=== PATIENT | male | born 1980 ===

== ENCOUNTER → 2017-03-08 06:07 | Emergency (ER) | payer OTHER ==
[~2017-03-08 06:07] MED LIST: hydrOXYzine HCL TAB* 50 MG PO ONE; predniSONE TAB* 20 MG PO ONE
[2017-03-08 06:14] VITALS: BP 150/86
--- NOTE | 2017-03-08 06:34 | ED ---
Joby Dhaliwal Alok, scribed for James Tran MD on 03/08/17 at 0631 . Skin Complaint - HPI Summary HPI Summary: 36M presents to the ED with a diffuse rash with pruritus on his legs, arms, abd , and back. Pt states that he was exposed to [place] as well as possibly poison bhavin one week ago and that a rash beginning on his right bicep has now spread to his arms, abd and back. Pt has tried applying Calamine for relief with no improvement. Pt denies taking Benadryl. Pt notes feeling anxious. Pt denies SOB or cough. Pt takes Gabapentin for anxiety but has not had any for the past few days. Pt smokes tobacco daily and drinks ETOH rarely. - History of Current Complaint Chief Complaint: EDRashSkinAbscess Time Seen by Provider: 03/08/17 06:14 Stated Complaint: POISON BHAVIN Hx Obtained From: Patient Onset/Duration: Started Days Ago, Atraumatic, Still Present Skin Exposure Onset/Duration: Days Ago Timing: Constant Onset Severity: Moderate Current Severity: Moderate Pain Intensity: 0 Pain Scale Used: 0-10 Numeric Skin Location: Diffuse, Arm, Abdomen, Leg Character: Pruritus, Redness Aggravating Symptom(s): Nothing Alleviating Symptom(s): Nothing Associated Signs & Symptoms: Negative Related History: Possible Reaction to: Environmental Exposure - Allergy/Home Medications Allergies/Adverse Reactions: Allergies Allergy/AdvReac Type Severity Reaction Status Date / Time Levofloxacin [From Levaquin] AdvReac Diarrhea Verified 03/08/17 06:18 Home Medications: Home Medications Albuterol HFA INHALER* [Ventolin HFA Inhaler*] 1 puff INH Q4H PRN 03/08/17 [ History Confirmed 03/08/17] DULoxetine DR CAP* [Cymbalta CAP*] 60 mg PO DAILY 03/08/17 [History Confirmed ] Gabapentin CAP(*) [Neurontin 400 mg CAP(*)] 400 mg PO TID PRN 03/08/17 [History Confirmed 03/08/17] PMH/Surg Hx/FS Hx/Imm Hx Psychiatric History: Reports: Hx Anxiety Denies: Hx Eating Disorder, Hx of Violent Episodes Against Others Infectious Disease History: No Infectious Disease History: Denies: Traveled Outside the [place] in Last 30 Days - Family History Known Family History: Negative: Diabetes - Social History Occupation: Employed Full-time Lives: With Family Alcohol Use: Rare Substance Use Type: Reports: None Smoking Status (MU): Light Every Day Tobacco Smoker Review of Systems Negative: Fever Negative: Shortness Of Breath, Cough Positive: Rash All Other Systems Reviewed And Are Negative: Yes Physical Exam - Summary Physical Exam Summary: The patient is well-nourished in no acute distress and in no acute pain. The skin is warm and dry and skin color reflects adequate perfusion. Vesicular rash noted diffusely on both arms and trunk, seems to represent dermatitis. HEENT: The head is normocephalic and atraumatic. The pupils are equal and reactive. The conjunctivae are clear and without drainage. Nares are patent and without drainage. Mouth reveals moist mucous membranes and the throat is without erythema and exudate. The external ears are intact. The ear canals are patent and without drainage. The tympanic membranes are intact. No lesions on face Neck is supple with full range of motion and non-tender. There are no carotid bruits. There is no neck vein distension. No stridor Respiratory: Chest is non-tender. Lungs are clear to auscultation and breath sounds are symmetrical and equal. Some wheezing. Cardiovascular: Hear is regular rate and rhythm. There is no murmur or rub auscultated. There is no peripheral edema and pulses are symmetrical and equal. Abdomen: The abdomen is soft and non-tender. There are normal bowel sounds heard in all four quadrants and there is no organomegaly palpated. Musculoskeletal: There is no back pain noted. Extremities are non-tender with full range of motion. There is good capillary refill. There is no peripheral edema or calf tenderness elicited. Neurological: Patient is alert and oriented to person, place and time. The patient has symmetrical motor strength in all four extremities. Cranial nerves are grossly intact. Deep tendon reflexes are symmetrical and equal in all four extremities. Psychiatric: The patient has an appropriate affect and does not exhibit any anxiety or depression. Triage Information Reviewed: Yes Vital Signs On Initial Exam: Initial Vitals Temp Pulse Resp BP Pulse Ox 97.2 F 76 18 150/86 99 03/08/17 06:13 03/08/17 06:13 03/08/17 06:13 03/08/17 06:13 03/08/17 06:13 Vital Signs Reviewed: Yes Diagnostics - Vital Signs Vital Signs Temp Pulse Resp BP Pulse Ox 03/08/17 06:13 97.2 F 76 18 150/86 99 - Laboratory Lab Statement: Any lab studies that have been ordered have been reviewed, and results considered in the medical decision making process. Course/Dx - Course Assessment/Plan: Pt presents with diffuse rash following poision bhavin and sumac exposure. Will discharge home with rx for atarax and prednisone. - Differential Diagnoses - Skin Complaint Differential Diagnoses: Allergic Reaction, Contact Dermatitis, Drug Rash, Other - rhus dermatitis - Diagnoses Provider Diagnoses: Dermatitis Discharge - Discharge Plan Condition: Stable Disposition: HOME Prescriptions: hydrOXYzine HCL TAB* [Atarax TAB 50 MG *] 50 mg PO QID PRN #30 tab PRN Reason: itching predniSONE TAB* [Deltasone TAB*] 60 mg PO DAILY #15 tab Patient Education Materials: Dermatitis (ED) Referrals: Eh MONTESINOS,Sriram Campbell [Primary Care Provider] - Additional Instructions: You may also which to mixing picker tender Aveeno soap or Domeboro soap to improve rash The documentation as recorded by the Joby johnson Alok accurately reflects the service I personally performed and the decisions made by me, James Tran MD.
== END | disposition home or self-care (01) ==
LOC: ED 06:07
DX: L30.9 Dermatitis, unspecified (principal); R21 Rash and other nonspecific skin eruption; F17.210 Nicotine dependence, cigarettes, uncomplicated
CPT/HCPCS: 99282; A9270-GY; J7512

== ENCOUNTER 2017-04-18 11:23 | Emergency (ER) | payer OTHER ==
[2017-04-18 14:04] VITALS: BP 139/89
--- NOTE | 2017-04-18 14:19 | UC ---
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 IS OUTSIDE A LOT. HAD A DEFINITE TICK BITE 2-3 WEEKS AGO AND IT IS CERTAINLY POSSIBLE HE HAD SOME THAT HE DIDN'T KNOW ABOUT PRIOR TO THAT. PAST COUPLE OF WEEKS HAS HAD EXTREME FATIGUE, MUSCLE ACHES, JOINT PAIN, BROWN AND MALAISE. HAD SUBJECTIVE FEVER. NO RASH. - History of Current Complaint Chief Complaint: UCGeneralIllness Stated Complaint: ? TICK BITE(FEVERISH,ACHY,STIFFNESS) Time Seen by Provider: 04/18/17 13:40 Hx Obtained From: Patient Onset/Duration: Gradual Onset, Lasting Weeks, Still Present Timing: Constant Onset Severity: Moderate Current Severity: Moderate Pain Intensity: 2 Associated Signs & Symptoms: Positive: Fever, Headache, Nausea - Allergy/Home Medications Allergies/Adverse Reactions: Allergies Allergy/AdvReac Type Severity Reaction Status Date / Time Levofloxacin [From Levaquin] AdvReac Diarrhea Verified 03/08/17 06:18 Home Medications: Home Medications Amphetamine-Dextroamphetamine [Adderall 10 mg-] 20 mg PO BID 04/18/17 [History Confirmed 04/18/17] PMH/Surg Hx/FS Hx/Imm Hx Previously Healthy: Yes - Surgical History Surgical History: Yes Surgery Procedure, Year, and Place: Reconstructive hand surgery - Family History Known Family History: Negative: Diabetes - Social History Alcohol Use: Rare Substance Use Type: Marijuana Smoking Status (MU): Light Every Day Tobacco Smoker Review of Systems Constitutional: Fever, Fatigue ENT: Negative Respiratory: Negative Cardiovascular: Negative Gastrointestinal: Nausea Musculoskeletal: Arthralgia, Myalgia Neurological: Headache All Other Systems Reviewed And Are Negative: Yes Physical Exam Triage Information Reviewed: Yes Appearance: No Pain Distress, Well-Nourished, Other: - APPEARS FATIGUED Vital Signs: Initial Vital Signs Temp 99.0 F 04/18/17 11:39 Pulse 63 04/18/17 11:39 Resp 16 04/18/17 11:39 BP 142/83 04/18/17 11:39 Pulse Ox 99 04/18/17 11:39 Vital Signs Reviewed: Yes Eyes: Positive: Conjunctiva Clear ENT: Positive: Hearing grossly normal Neck: Positive: Supple Respiratory Exam: Normal Cardiovascular Exam: Normal Abdomen Description: Positive: Soft Musculoskeletal: Positive: No Edema Neurological: Positive: Alert Psychological: Positive: Age Appropriate Behavior Skin: Negative: rashes Course/Dx - Differential Dx - Multi-Symptom Provider Diagnoses: SUSPECTED LYME DISEASE Discharge - Discharge Plan Condition: Stable Disposition: HOME Prescriptions: Doxycycline (Monohydrate) [Doxycycline Monohydrate] 1 cap PO BID #20 cap Patient Education Materials: Lyme Disease (ED), Tick Bite (ED) Referrals: Elmer MONTESINOS,Josiah Mendez [Medical Doctor] - Eh MNOTESINOS,Sriram Campbell [Primary Care Provider] - If Needed Additional Instructions: BLOOD DRAWN TO TEST FOR LYME TODAY. TAKE THE DOXY FOR THE FULL 10 DAYS EVEN IF IT IS NEGATIVE. IF IT IS POSITIVE WOULD EXTEND COURSE FOR 21 DAYS TOTAL AND FOLLOW-UP WITH DR. LITTLE FROM INFECTIOUS DISEASES. DOXY WILL MAKE YOU MORE SENSITIVE TO THE SUN SO TAKE PRECAUTIONS. LYME DISEASE: You are suspected of having Lyme disease. Further testing may be necessary to confirm the diagnosis. Lyme disease is an infection spread through the bite of a deer tick. Symptoms include rash, fever, fatigue, joint swelling, and aches. Lyme disease can be treated with antibiotics. It is important that you take the entire course of medication. Call the physician if you develop severe headache, stiff neck, paralysis or "drooping" of either side of the face, or a worsening of any other symptom. The majority of patients with early Lyme disease who receive appropriate antibiotic therapy have complete resolution of the signs and symptoms of infection within 20 days and, in one trial, erythema migrans (the rash) and its associated symptoms resolved in a mean of five to six days. Patients who are more systemically ill at the beginning of treatment may take longer to recover. Some patients have mild subjective symptoms, such as headache, musculoskeletal pain, arthralgia, or fatigue, that persist for weeks to months after treatment. These subjective findings often resolve spontaneously, usually within six months , without further antibiotic therapy; they are not due to ongoing active Lyme disease. Almost all patients who have a satisfactory response to antibiotic therapy do well over the long-term.
== END 2017-04-18 14:13 | disposition home or self-care (01) ==
LOC: UCEAST 11:23
DX: R50.9 Fever, unspecified (principal); M79.1 Myalgia; M25.60 Stiffness of unspecified joint, not elsewhere classified; T14.8 Other injury of unspecified body region; W57.XXXA Bitten or stung by nonvenomous insect and other nonvenomous arthropods, initial encounter; Y93.H2 Activity, gardening and landscaping; Y92.9 Unspecified place or not applicable; Y99.0 Civilian activity done for income or pay; Z72.0 Tobacco use
CPT/HCPCS: 86617; 86618; 99212; G0463

== ENCOUNTER 2017-07-07 11:28 | Emergency (ER) | payer OTHER ==
[2017-07-07 12:14] VITALS: BP 133/97
--- NOTE | 2017-07-07 12:33 | UC ---
UC General HPI - HPI Summary HPI Summary: Had Lyme disease a few months ago rx with 21 days of Doxycycline, got better but in the past few days body and joint aches and sweating has returned, patient did not follow up with any body for initial diagnosis does not believe he has had another Tick bite - History of Current Complaint Chief Complaint: UCGeneralIllness Stated Complaint: LYME DISEASE Time Seen by Provider: 07/07/17 12:16 Hx Obtained From: Patient Onset/Duration: Gradual Onset, Lasting Days Timing: Constant Onset Severity: Moderate Current Severity: Moderate Associated Signs & Symptoms: Positive: Other - muscle and joint aches - Allergy/Home Medications Allergies/Adverse Reactions: Allergies Allergy/AdvReac Type Severity Reaction Status Date / Time Levofloxacin [From Levaquin] AdvReac Diarrhea Verified 07/07/17 12:16 PMH/Surg Hx/FS Hx/Imm Hx Previously Healthy: Yes - Surgical History Surgical History: Yes Surgery Procedure, Year, and Place: Reconstructive hand surgery - Family History Known Family History: Negative: Diabetes - Social History Occupation: Employed Full-time Lives: With Family Alcohol Use: Rare Substance Use Type: Marijuana Smoking Status (MU): Light Every Day Tobacco Smoker Cessation Counseling: Patient Advised to Stop Review of Systems Constitutional: Chills, Fatigue Skin: Negative Eyes: Negative ENT: Negative Respiratory: Negative Cardiovascular: Negative Gastrointestinal: Negative Genitourinary: Negative Motor: Negative Neurovascular: Negative Musculoskeletal: Arthralgia, Myalgia Neurological: Negative Psychological: Negative Is Patient Immunocompromised?: No All Other Systems Reviewed And Are Negative: Yes Physical Exam Triage Information Reviewed: Yes Appearance: Well-Appearing, No Pain Distress, Well-Nourished Vital Signs: Initial Vital Signs Temp 98.6 F 07/07/17 12:09 Pulse 77 07/07/17 12:09 Resp 18 07/07/17 12:09 BP 133/97 07/07/17 12:09 Pulse Ox 100 07/07/17 12:09 Vital Signs Reviewed: Yes Eye Exam: Normal Eyes: Positive: Conjunctiva Clear ENT Exam: Normal ENT: Positive: Normal ENT inspection, Hearing grossly normal, TMs normal. Negative: Nasal congestion, Nasal drainage, Trismus, Muffled/hoarse voice Dental Exam: Normal Neck exam: Normal Neck: Positive: Supple, Nontender Respiratory Exam: Normal Respiratory: Positive: Chest non-tender, Lungs clear, Normal breath sounds, No respiratory distress, No accessory muscle use Cardiovascular Exam: Normal Cardiovascular: Positive: RRR, No Murmur, Pulses Normal, Brisk Capillary Refill Musculoskeletal Exam: Normal Musculoskeletal: Positive: Strength Intact, ROM Intact, No Edema Neurological Exam: Normal Neurological: Positive: Alert, Muscle Tone Normal Psychological Exam: Normal Skin Exam: Normal Course/Dx - Course Course Of Treatment: start 28 days doxycycline for recurrent Lyme arthritis, lab studies, follow with Dr. Lovett this week - Differential Dx - Multi-Symptom Differential Diagnoses: Other - recurrent Lyme Arthritis Provider Diagnoses: Recurrent Lyme Arthritis Discharge - Discharge Plan Condition: Stable Disposition: HOME Prescriptions: DOXYcycline CAP(*) [DOXYcycline 100MG CAP(*)] 100 mg PO BID #56 cap Patient Education Materials: Lyme Disease (ED) Referrals: Elmer MONTESINOS,Josiah Mendez [Medical Doctor] - As Soon As Possible
[2017-07-07 15:52] LABS: Hematocrit 45 % (42-52); Hemoglobin 15.6 g/dl (14.0-18.0); Mean Corpuscular HGB Conc 34 g/dl (31-36); Mean Corpuscular Hemoglobin 29 pg (27-31); Mean Corpuscular Volume 84 fL (80-94); Mean Platelet Volume 8 um3 (7.4-10.4); Red Blood Count 5.41 10^6/ul (4.0-5.4); Red Cell Distribution Width 15 % (10.5-15); White Blood Count 8.1 10^3/ul (3.5-10.8)
[2017-07-09 19:00] LABS: Lyme Disease IgG Ab WB Negative (Negative)
== END 2017-07-07 12:58 | disposition home or self-care (01) ==
LOC: UCEAST 11:28
DX: A69.23 Arthritis due to Lyme disease (principal); F17.210 Nicotine dependence, cigarettes, uncomplicated
CPT/HCPCS: 36415; 85025; 86140; 86617; 86618; 99212; G0463